=== PATIENT | male | born 1990 | race Two or more races ===

== ENCOUNTER → 2016-05-03 | Day surgery (SDC) | payer MEDICAID ==
[~2016-05-03] VITALS: Ht 167.6 cm; Wt 52.2 kg
[2016-05-03] VITALS (9 sets, daily range): BP systolic 48–107; BP diastolic 42–70
[~2016-05-03] MED LIST: ALPRAZolam 0.5mg tab ORAL ONE; ATORVASTATIN CA20 MG ORAL; CREON DR 24,001 EACH PO; DiphenhydrAMINE 50mg/ml Inj IVP PRN; Jardiance PO; LANTUS SOL100 UNIT/1 SUBQ; LATUDA40 MG PO; LEXAPRO20 MG ORAL; LISINOPRIL5 MG ORAL; LR 1000ml 1,000 ML IVLG SCH; Labetalol 5mg/ml 20ml vial IV PRN; Lidocaine 1% MPF 10mg/ml 5ml ONE; METFORMIN HCL1000 M1 ORAL; METFORMIN HCL500 M1 ORAL; NOVOLOG100 UNIT/3 SUBQ; Propofol 10mg/ml 20ml IV ONE; SEROQUEL200 MG ORAL; XANAX2 MG ORAL
--- NOTE | 2016-05-03 07:09 | Anethesia Preoperative Eval ---
Anesthesia Pre-op PMH/ROS General Date of Evaluation: May 03, 2016 Anesthesiologist: Cristian ASA Score: ASA 2 Mallampati Score Class I : Soft palate, uvula, fauces, pillars visible Class II: Soft palate, uvula, fauces visible Class III: Soft palate, base of uvula visible Class IV: Only hard plate visible Mallampati Classification: Class II Surgeon: Aniya Diagnosis: Pancreatitis Surgical Procedure: EUS Anesthesia History: none Social History: current smoker Family History: no anesthesia problems Allergies: Coded Allergies: No Known Allergies (Unverified , 11/06/15) Medications: see eMAR Past Medical History Cardiovascular: Reports: HTN, Denies: CAD, [place], arrhythmia, other, valve dz Pulmonary: Denies: COPD, AUNDREA, asthma, other Gastrointestinal/Genitourinary: Reports: GERD, other - pancreatitis, Denies: CRI, ESRD Neurologic/Psychiatric: Reports: depression/anxiety, other - bipolar, schizopphrenic, Denies: CVA, TIA, dementia Endocrine: Reports: DM, Denies: hypothyroidism, other, steroids HEENT: Denies: [place] (L), [place] (R), cataract (L), cataract (R), glaucoma, other Hematology/Immune: Denies: DVT, anemia, bleeding disorder, other Musculoskeletal/Integumentary: Denies: DDD, DJD, OA, RA, edema, other PSxH Narrative: lap flakita Anesthesia Pre-op Phys. Exam Physician Exam see chart Constitutional: NAD Cardiovascular: RRR Respiratory: CTA Airway Exam Mallampati Score: Class II Anesthesia Pre-op A/P Labs see chart Risk Assessment & Plan Assessment: ASA II Plan: MAC Status Change Before Surgery: No Pre-Antibiotics Drug: N/A LASHONDA MORA M.D. May 03, 2016 07:09
--- NOTE | 2016-05-03 08:07 | 48 Hour Post Anesthesia Eval ---
Post Anesthesia Evaluation Procedure: EUS Date of Evaluation: May 03, 2016 Blood Pressure Systolic: 99 0: 59 Pulse Rate: 81 Respiratory Rate: 16 O2 Sat by Pulse Oximetry: 100 Airway: patent Nausea: No Vomiting: No Pain Intensity: 0 Hydration Status: adequate Cardiopulmonary Status: at baseline Mental Status/LOC: patient returned to baseline Post-Anesthesia Complications: 0 Follow-up care needed: ready to discharge LASHONDA MORA M.D. May 03, 2016 08:07
--- NOTE | 2016-05-03 08:07 | Immediate Post-Op Evaluation ---
Immediate Post-Op Evalulation Immediate Post-Op Evalulation Procedure: EUS Date of Evaluation: May 03, 2016 Time of Evaluation: 10:29 IV Fluids: 1L Blood Products: 0 Estimated Blood Loss: 0 Urinary Output: 0 Blood Pressure Systolic: 77 Blood Pressure Diastolic: 44 Pulse Rate: 80 Respiratory Rate: 16 O2 Sat by Pulse Oximetry: 100 Temperature (Fahrenheit): 97.2 Pain Score (1-10): 0 Nausea: No Vomiting: No Complications 0 Patient Status: awake, reacts, patent, none Hydration Status: adequate Drug: N/A LASHONDA MORA M.D. May 03, 2016 08:07
--- NOTE | 2016-05-03 09:27 | Pre-Procedure Note/Attestation ---
Pre-Procedure Note/Attestation Complete Prior to Procedure Planned Procedure: not applicable Procedure Narrative: eus Indications for Procedure Pre-Operative Diagnosis: pancreatitis Attestation I attest that I discussed the nature of the procedure; its benefits; risks and complications; and alternatives (and the risks and benefits of such alternatives ), prior to the procedure, with the patient (or the patient's legal senior customer service representative). I attest that, if there was a reasonable possibility of needing a blood transfusion, the patient (or the patient's legal senior customer service representative) was given the [facility] standardized written summary, pursuant to the Danny Bardolph Blood Safety Act ([place] Health and Safety Code # 1645, as amended). I attest that I re-evaluated the patient just prior to the surgery and that there has been no change in the patient's H&P, except as documented below: UYEN FELDMAN May 03, 2016 09:27
--- NOTE | 2016-05-03 09:28 | Short Stay Surgery H&P ---
History of Present Illness History of Present Illness Chief Complaint pancreatitis HPI Lior Espinosa is a 25 year old male who was admitted on for Pancreatitis Patient History Allergies: Coded Allergies: No Known Allergies (Unverified , 11/06/15) PAST MEDICAL HISTORY: (1) Diabetes mellitus (2) Anxiety (3) Depression (4) Chronic pancreatitis (5) Bipolar 1 disorder Past Surgeries: Social History: Medication History Discontinued Medications Alprazolam* (Xanax*), 3 MG ORAL PRN, (Reported) Discontinued Reason: Medication dose changed Insulin Aspart* (Novolog*), 6 UNIT SUBQ, (Reported) Discontinued Reason: Medication dose changed Insulin Glargine (Lantus), 20 UNIT SUBQ BEDTIME, (Reported) Discontinued Reason: Medication dose changed Lipase/Protease/Amylase (Creon Dr 24,000 Units Capsule), Unknown Dose PO DAILY, (Reported) Discontinued Reason: Medication dose changed Metformin Hcl* (Metformin Hcl*), 1,000 MG ORAL TWICE A DAY, (Reported) Discontinued Reason: Medication dose changed Quetiapine Fumarate* (Seroquel*), 300 MG ORAL QHS, (Reported) Discontinued Reason: Medication dose changed Review of Systems Cardiovascular: Reports: no symptoms Skeletal: Reports: no symptoms Gastrointestinal: Reports: see HPI Genitourinary: Reports: no symptoms Neurologic: Reports: no symptoms Endocrine: Reports: diabetes - type 2 Hematologic: Reports: no symptoms Physical Exam Vital Signs Last Vital Signs Date Time Temp Pulse Resp B/P Pulse Ox O2 Delivery O2 Flow Rate FiO2 05/03/16 08:56 97.7 86 18 107/60 99 Room Air Skin: normal HENT: normal Heart: normal Lungs: normal Abdomen: normal Extremities: normal Plan Plan of Care eus Final Diagnosis: Attestation Are the patient's medical conditions optimized for surgery? Attestation Response: yes UYEN FELDMAN May 03, 2016 09:28
[2016-05-03 09:55] LABS: BASOPHILS % (AUTO) 0.9 % (0.0-2.0); EOSINOPHILS % (AUTO) 2.2 % (0.0-3.0); LYMPHOCYTES % (AUTO) 47.2 % (20.0-45.0); MEAN CORPUSCULAR HEMOGLOBIN 28.6 PG (27.0-31.0); MEAN CORPUSCULAR VOLUME 87 FL (80-99); MEAN PLATELET VOLUME 8.1 FL (6.5-10.1); MONOCYTES % (AUTO) 6.1 % (1.0-10.0); NEUTROPHILS % (AUTO) 43.6 % (45.0-75.0); PLATELET COUNT 121 K/UL (150-450); RED CELL DISTRIBUTION WIDTH 14.6 % (11.6-14.8)
[2016-05-03 10:08] LABS: ANION GAP 14 (5-15); CALCIUM 9.2 mg/dL (8.6-10.2); CARBON DIOXIDE 23 mEQ/L (20-30); CHLORIDE 98 mEQ/L (98-107); CREATININE 0.6 mg/dL (0.7-1.2); GLOMERULAR FILTRATION RATE > 60 mL/min (>60); HEMOLYSIS 3; INR 1.1 (0.9-1.1); POTASSIUM 4.1 mEQ/L (3.4-4.9); PROTHROMBIN TIME 10.4 SEC (9.30-11.50); SODIUM 135 mEQ/L (135-145)
[2016-05-03 10:09] LABS: AMYLASE 54 U/L (10-110); LIPASE 35 U/L (< 60)
--- NOTE | 2016-05-03 10:23 | Endoscopy Procedure Note ---
Endoscopy Procedure Note Indication for Procedure: pancreatitis Procedures Performed: other - EUS Operative Findings/Diagnosis: same Specimen: yes Pt Tolerated Procedure Well: Yes Estimated Blood Loss: none Anesthesiologist: rachael Anesthesia: MAC Implant(s) used?: No 50 yrs or older w/o bx or poly: Not Applicable 10yrs. F/U not recommended: Not Applicable UYEN FELDMAN May 03, 2016 10:23
--- NOTE | 2016-05-03 20:08 | Procedure Note ---
DATE OF PROCEDURE: 05/03/2016 SURGEON: Mikey Kwan M.D. PROCEDURE: EUS. ANESTHESIOLOGIST: Per Dr. Plascencia. INSTRUMENT: Olympus adult flexible EUS scope. INDICATION: Pancreatitis. REASON FOR PROCEDURE: The procedure, risks, benefits, and possible consequences, including hemorrhage, aspiration, perforation and infection, and alternative treatments, were explained to the patient/legal guardian by Dr. Mikey Kwan and the patient/legal guardian understood and accepted these risks. DESCRIPTION OF PROCEDURE: After informed consent was obtained and the patient was adequately sedated, the EUS scope was advanced from mouth into the second portion of the duodenum and pancreatic parenchyma was carefully examined through the gastroduodenal mucosa. Starting scanning at GE junction, celiac axis was seen. adenoid gland was seen without any obvious adenoma. There were some prominent vessels in this region suspicious for may be a small gastric varices. The patient had severe pancreatitis with calcification and disrupted glands throughout the pancreatic body and tail with a dilated pancreatic duct to about 7 mm in the maximum dimension. There is a question that there might be a stone in the body of the pancreas in the pancreatic duct. Then scope was advanced into the antrum, duodenal bulb, and second portion of the duodenum. The patient has a history of cholecystectomy. The patient has some enlarged liver. There was a stent that seems to be in the common bile duct and common bile duct was decompressed from the stent. There is again significant evidence of pancreatitis with inflammation and calcification in the head of the pancreas. The patient tolerated the procedure well without any complication. SUMMARY OF FINDINGS: 1. Severe calcified pancreatitis with dilated pancreatic duct in the body to about 7 mm. 2. History of cholecystectomy. 3. Presumptive biliary stent in place in the common bile duct. RECOMMENDATIONS: We will recommend the patient to have an endoscopic retrograde cholangiopancreatography and remove the common bile duct stent if it has been over three months from placement. We also recommend the patient to be seen by a surgeon for surgical options for her pancreatitis given the patient had dilated pancreatic duct in the body, so he might be a good candidate for push to procedure or refer that to a surgeon. At this time, there was no obvious mass for us to do an fine needle aspiration to calcify pancreas. Mikey Stefanie Kwan DR: CARRILLO JOB#: [id number] CC:
[2016-05-05 14:18] LABS: IGG SERUM 950 mg/dL (700-1600); IGG SUBCLASS 1 617 mg/dL (422-1292); IGG SUBCLASS 2 328 mg/dL (117-747); IGG SUBCLASS 3 14 mg/dL (41-129); IGG SUBCLASS 4 24 mg/dL (1-291)
== END | disposition home or self-care (01) ==
LOC: GAS 07:46
DX: K86.1 Other chronic pancreatitis (principal); K86.89 Other specified diseases of pancreas; E11.9 Type 2 diabetes mellitus without complications; Z79.4 Long term (current) use of insulin; Z79.84 Long term (current) use of oral hypoglycemic drugs; F41.9 Anxiety disorder, unspecified; F31.9 Bipolar disorder, unspecified; F20.9 Schizophrenia, unspecified; I10 Essential (primary) hypertension; K21.9 Gastro-esophageal reflux disease without esophagitis; Z90.49 Acquired absence of other specified parts of digestive tract
CPT/HCPCS: 36415; 43237; 80048; 82150; 82784; 82787; 82962; 83690; 85025; 85610; 85730; 86039; J2704; Z7512; 94003; 94150